=== PATIENT | male | born 1975 | race Caucasian/White ===

== ENCOUNTER 2022-03-26 20:03 | Emergency (ER) | payer SELFPAY ==
[~2022-03-26] VITALS: Ht 167.6 cm; Wt 68.0 kg
[2022-03-26 20:03] VITALS: BP 134/83
--- NOTE | 2022-03-26 20:08 | NUR ---
PT ELIZA MEDINA, TO LOBBY
--- NOTE | 2022-03-26 21:08 | NUR ---
Dr. Carrasquillo examining patient.
[2022-03-26 22:06] VITALS: BP 134/83
--- NOTE | 2022-03-26 22:06 | NUR ---
Patient discharged with v/s stable. Written and verbal after care instructions given and explained. Patient verbalized understanding. Ambulatory with steady gait. All questions addressed prior to discharge. Advised to follow up with PMD.
== END 2022-03-26 22:06 | disposition home or self-care (01) ==
LOC: MED 20:03
DX: F10.129 Alcohol abuse with intoxication, unspecified (principal); Y90.9 Presence of alcohol in blood, level not specified
CPT/HCPCS: 99283